=== PATIENT | female | born 1950 | race Caucasian/White ===

== ENCOUNTER 2023-08-21 09:17 | Outpatient (REF) | payer MEDICARE, SELFPAY | END 2023-08-21 09:18 | disposition home or self-care (01) | LOC: HO.SH 09:17 | PROVIDERS: Visit Provider Internal Medicine | DX: H91.90 Unspecified hearing loss, unspecified ear (principal) | CPT/HCPCS: 92557 ==

== ENCOUNTER 2025-02-07 08:49 | Outpatient (REF) | payer MEDICARE, SELFPAY ==
--- OUTSIDE RECORDS SUMMARY | 2025-02-07 09:17 | XMS_ITS | Clinical Summary ---
Author Organization [facility] [employer] Address [address] [place] [address] Phone Care Team Providers Care Asthma Educator Name Role Phone Julita Chamberlain MD Primary Care Prov ider Allergies Active Allergy Reactions Criticality Noted Date Comments Adhesive Tape-Silicones 07/03/2023 Medications calcium carbonate/vitam in D3 (CALCIUM CARBONATE-VITAM IN D PO) Take 1 Tablet by mouth 2 times daily. Active ketoconazole (NIZORAL) 2 % cream Apply topically 2 times daily. PRN Active latanoprost (XALATAN) 0.005 % ophthalmic solution Administer 1 drop into both eyes at bedtime. Active timolol (TIMOPTIC) 0.5 % ophthalmic solution Administer 1 drop into both eyes 2 (two) times a day. 4 Active lisinopriL (PRINIVIL,ZESTR IL) 5 mg tablet TAKE 1 TABLET DAILY 90 tablet 1 5 Active metoprolol succinate (TOPROL-XL) 25 mg 24 hr tablet TAKE 1 TABLET DAILY 90 tablet 1 5 Active simvastatin (ZOCOR) 40 mg tablet TAKE 1 TABLET AT BEDTIME 90 tablet 1 5 Active Active Problems Problem Noted Date Diagnosed Date SVT (supraventricular tachycardia) 06/10/2023 Overview (12/13/2024): Last Assessment & Plan: Patient with documented SVT. This is the first episode in 7 years triggers uncertain. EKGs from [place] definitely show SVT narrow complex. Patient is on beta-angelica and tolerating it now. I explained to her the mechanism of SVT. The symptoms of SVT. We discussed the mechanical procedures that she can take to try to break the episode. I told her to call 911 and if Valsalva does not stop the episode so that she can be treated with adenosine again. I explained her that if the frequency of these episodes increase we could consider an ablation but with a frequency of once every 7 years I would not proceed to an ablation at this point. There is no evidence of preexcitation on her EKG. Recommend continuation of beta-angelica Assessment & Plan (02/05/2025 7:44 PM EDT): Orders: Transthoracic echocardiogram (TTE) complete with PRN contrast, bubble, strain, and 3D order panel; Future Assessment & Plan (12/13/2024 12:43 PM EST): Patient with recurrent probable SVT. Most stopped with adenosie in the past. Frequency is increased a little bit I think she does have a conversation with the EP service concerning the possibility of ablation. She does not seem to be too anxious to have that done but the frequency of the episodes seem to be increasing in she may start to limit her lifestyle based on the fear of developing arrhythmias. So ask her to be seen by the EP service in the meantime she will continue on Orders: Ambulatory referral to Cardiac Electrophysiology; Future Assessment & Plan (12/12/2024 1:01 PM EST): New recent episode of SVT. She was seen in ER, however at the time of evaluation he was already resolved. She will see cardiology tomorrow. Continue metoprolol as prescribed. Hyperlipidemia 06/15/2022 Assessment & Plan (12/12/2024 1:01 PM EST): Currently on simvastatin 40 mg a day. Last LDL was 96. We we will continue same dose of the medication. Will recheck a lipid profile and a CMP before her next visit. Orders: Comprehensive metabolic panel; Future Lipid panel with reflex to direct LDL; Future Osteopenia 04/23/2011 Encounters Date Type Department Care Team Description 02/01/2025 1:00 PM EDT Consult [facility] Cardiology [facility] [address] [place] [id number] Marc Hidalgo MD PSVT (paroxysmal supraventricular tachycardia) ([facility]) (Primary Dx); SVT (supraventricular tachycardia) ([facility]/HCC) 12/13/2024 8:50 AM EST Office Visit [facility] Cardiology [facility] [address] [place] [id number] Isidoro Garcia MD SVT (supraventricular tachycardia) ([facility]) (Primary Dx) 12/12/2024 11:30 AM EST Office Visit Adult Medicine [address] [phone] Julita Chamberlain MD Encounter for general adult medical examination without abnormal findings (Primary Dx); Primary hypertension; Mixed hyperlipidemia; SVT (supraventricular tachycardia) ([facility]); Screen for colon cancer; Advance care planning from Last 3 Months Immunizations Name Administration Dates Next Due Influenza Quadravalent, MDCK , 0.5ml, with preservative (Flucelvax) 6mo and older 09/18/2017 Influenza trivalent, 0.5mL ( Fluad) 65yo and older 07/22/2023,08/22/2022,06/24/2021,08/03,08/16/2019,09/01/2018 Influenza trivalent, 0.5mL, preservative free (Fluarix; FluLaval; Fluzone) ages 6mo and older (Afluria) 3 years and older 09/01/2016,09/26/2014,08/10/2013,10/14,10/28/2011,08/22/2010,08/15/2009 Pfizer SARS-CoV-2 COVID-19, mRNA, LNP-S, preservative free 08/23/2021 Pneumococcal conjugate 13 va lent (Prevnar 13, PCV13) 2mo and older 09/18/2017 Pneumococcal polysaccharide 23 valent (Pneumovax 23) 2yo and older 12/01/2018 Td Tetanus diptheria (Tdvax) 7yo and older 10/08/2022,09/03/2004 Td, Unspecified 09/03/2004 Tdap Tetanus diptheria acell ular pertussis (Boostrix; Adacel) 7yo and older 06/14/2012 Zoster Live 10/14/2012 Zoster recombinant (Shingrix ) 19yo and older 11/17/2020 Surgical History Surgery Date Site/Laterality Comments OTHER SURGICAL HISTORY 2005 PROCEDURE: COLONOSCOPY, REMOVE LESION; COMMENT: POLYP, DIVERTICULUM - TUb ademoma TONSILLECTOMY child PROCEDURE: HISTORICAL TONSILLECTOMY SKIN BIOPSY 02/17/05 PROCEDURE: BIOPSY OF SKIN LESION; COMMENT: MELANOCYTIC NEVUS, INTRADERMAL CONGENITAL TYPE - CHEEK COLONOSCOPY 01/2006 PROCEDURE: HISTORICAL COLONOSCOPY; COMMENT: adenoma and diverticulosis COLONOSCOPY 01/26/09 PROCEDURE: MA COLONOSCOPY STOMA DX INCLUDING COLLJ SPEC SPX; COMMENT: diverticulosis; repeat in five years COLONOSCOPY 03/21/14 PROCEDURE: MA COLONOSCOPY STOMA DX INCLUDING COLLJ SPEC SPX; COMMENT: tics; repeat in 5 yrs OTHER SURGICAL HISTORY PROCEDURE: HISTORICAL CA BASAL CELL; COMMENT: BCC 09/24 nose (nodular) Medical History Medical History Date Comments Diverticulosis of colon (wit hout mention of hemorrhage) DX:Diverticulosis of colon ( without mention of hemorrhage); COMMENT: colonoscopy 2004 Pure hypercholesterolemia DX:Pur e hypercholesterolemia Overweight(278.02) 11/19/2006 DX:Overweight (278.02) Personal history of colonic polyps 01/07/06 DX:Personal history of colonic polyps; COMMENT: repeat 01/15 Essential hypertension, benign 10/31/08 D X:Essential hypertension, benign Glaucoma DX:Glaucoma; COM MENT: Dr Hearn Arthritis pain, hand 02/27/2015 DX:Arthriti s pain, hand History of basal cell carcinoma 10/15/2016 DX:History of basal cell carcinoma; COMMENT: BCC 09/24 nose (nodular) Family History Medical History Relation Name Comments Alcohol abuse Brother 1 Heart attack Brother 2 Coronary artery disease Maternal Grandmother Hypertension Mother Colon cancer Mother's side uncle, d Coronary artery disease Paternal Grandfather Breast cancer Neg Hx Ovarian cancer Neg Hx Uterine cancer Neg Hx Relation Name Status Comments Brother 1 ETOH, CIRRHOSIS Brother 2 Alive Healthy Daughter Alive Healthy Father CHOL, PROGRESSI VE APHASIA DISORDER, GLAUCOMA Maternal Grandfather UK Maternal Grandmother CO Mother (Age 76) A-FIB, HTN , CVA Mother's side Paternal Grandfather CO Paternal Grandmother CA abdo min Sister Alive Healthy Son Alive Helathy x glauc katelyn Social History Tobacco Use Types Packs/Day Years Used Date Smoking Tobacco: Former Cigarettes Q uit: 11/09/1971 Smokeless Tobacco: Never Tobacco Cessation:Counseling Given: Not Answered Alcohol Use Standard Drinks/Week Comments Not Currently 0 (1 standard drink = 0.6 oz pur e alcohol) occasional Comments No Sex and Gender Information Value Date Recorded Sex Assigned at Not on file Legal Sex Female 1:16 PM EST Gender Identity Not on file Sexual Orientation Not on file Obstetrics History Last Filed Vital Signs Vital Sign Reading Time Taken Comments Blood Pressure 142/82 02/01/2025 1:20 PM EDT Pulse 65 02/01/2025 1:20 PM EDT Temperature 36.7 ??C (98 ??F) 12/12/2024 11:36 AM EST Respiratory Rate 13 12/12/2024 11:36 AM EST Oxygen Saturation 96% 12/13/2024 8:46 AM EST Inhaled Oxygen Concentration - - Weight 51.7 kg (114 lb) 02/01/2025 1:20 PM EDT Height 152.4 cm (5') 12/13/2024 8:46 AM EST Body Mass Index 22.26 12/13/2024 8:46 AM EST Plan of Treatment Upcoming Encounters Date Type Department Care Team (Late st Contact Info) Description 04/18/2025 12:30 PM EDT Ancillary Procedure [facility] [address] [place] [address] [phone] 04/21/2025 8:50 AM EDT Appointment Radiology Department - [address] [phone] 06/13/2025 1:00 PM EDT Office Visit Adult Medicine [address] [phone] Julita Chamberlain MD [address] [place] [address] Health Maintenance Due Date Last Done Comments Zoster Vaccines (2 of 2) 01/12/2021 11/17/2020, 04/2012 Social Influencers of Health Screening 10/18/2022 Colorectal Cancer Screening: Colonoscopy 08/02/2024 08/02/2019, 03/21/2014 Hypertension/CHF/CAD Annual BMP Blood Test 04/14/2025 04/14/2024, 04/14/2024 Depression Screening 12/12/2025 12/12/2024, 12/09/19 24 Falls Risk Assessment 12/12/2025 12/12/2024, 024 Medicare Annual Wellness Visit 12/12/2025 12/12/2024 Breast Cancer Screening 04/14/2026 04/14/20, 04/14/2024, 03/24/2023, Additional history exists Cholesterol Screening (Lipid Panel) 04/14/2029 04/14/2024, 04/14/2024 DTaP,Tdap,and Td Vaccines (5 - Td or Tdap) 10/08/2032 10/08/2022, 06/14/2012, 09/03/2004, Additional history exists Osteoporosis Screening (Bone Density Screening) 11/05/2032 11/05/2022, 10/19/2017 Hepatitis C Screening Completed 08/10/2013 Pneumococcal Vaccine: 50+ Years Completed 12/01/2018, 09/18/2017 RSV Immunization Patients 60+ Years Old Completed 09/14/2023 COVID-19 Vaccine Completed 08/15/2024, 04/2023, 01/14/2023, Additional history exists Influenza Vaccine Completed 08/15/2024, , 08/22/2022, Additional history exists HIB Vaccines Aged Out No longer eligi ble based on patient's age to complete this topic HPV Vaccines Aged Out No longer eligi ble based on patient's age to complete this topic Hepatitis A Vaccines Aged Out No long er eligible based on patient's age to complete this topic Hepatitis B Vaccines Aged Out No long er eligible based on patient's age to complete this topic IPV Vaccines Aged Out No longer eligi ble based on patient's age to complete this topic MMR Vaccines Aged Out No longer eligi ble based on patient's age to complete this topic Meningococcal ACWY Vaccine Aged Out N o longer eligible based on patient's age to complete this topic Meningococcal B Vacine Aged Out No lo nger eligible based on patient's age to complete this topic RSV Immunization Patients Under 20 months Aged Out No longer eligible based on patient's age to complete this topic Varicella Vaccines Aged Out No longer eligible based on patient's age to complete this topic Procedures Procedure Name Priority Date/Time Associated Diagnosis Comments ECG 12-LEAD Routine 02/01/2025 1:25 PM EDT PSVT (paroxysmal supraventricular tachycardia) (CMS/HCC) SCREENING MAMMOGRAPHY BI 2-VIEW BREAST INC CAD Routine 04/14/2024 9:16 AM EDT Encounter for screening mammogram for malignant neoplasm of breast ANNUAL BMP BLOOD TEST Routine 04/14/2024 LIPID PANEL Routine 04/14/2024 DEPRESSION SCREENING Routine 12/09/2023 FALLS RISK ASSESSMENT Routine 12/09/2023 DXA BONE DENSITY STUDY 1+ SITS AXIAL SKEL Routine 11/05/2022 10:31 AM EST Asymptomatic menopausal state COLONOSCOPY Routine 08/02/2019 HEPATITIS C SCREENING Routine 08/10/2013 from Last 3 Months or Most Recently Relevant to Health Maintenance Results * ECG 12 lead (02/01/2025 1:25 PM EDT) Ventricular Rate ECG 65 BPM GEMUSE Atrial Rate 65 BPM GEMUSE P-R Interval 164 ms GEMUSE QRS Duration 88 ms GEMUSE Q-T Interval 420 ms GEMUSE QTc 436 ms GEMUSE P Wave [place] 68 degrees GEMUSE R [place] 8 degrees GEMUSE T [place] 53 degrees GEMUSE ECG Interpretation Normal sinus rhythm No previous ECGs available Confirmed by FAUSTO HIDALGO ([id number]) on 02/02/2025 8:35:01 PM GEMUSE 02/01/2025 1:25 PM EDT 02/02/2025 8:35 PM EDT us Marc Hidalgo MD ECG ORDERABLES Final Resu lt GEMUSE * SCREENING MAMMOGRAPHY BI 2-VIEW BREAST INC CAD (04/14/2024 9:16 AM EDT) Anatomical Region Laterality Modality Radiographic Laxmi ging 03/24/2023 8:02 AM EDT Narrative 04/14/2024 10:48 AM EDT This is a summary report. The complete report is available in the patient's medical record. If you cannot access the medical record, please contact the sending organization for a detailed fax or copy. Full field digital screening tomosynthesis mammography, reviewed with CAD and compared to previous mammograms dating back to 01/09/2020 with most recent of 03/24/2023. The breasts are composed of fatty and fibroglandular tissue. ??No suspicious mass, architectural distortion or suspicious calcifications are identified. IMPRESSION: : No mammographic evidence of malignancy. BIRADS 1-Negative; N. 5 year breast cancer risk assessment 1.9 % Lifetime breast cancer risk assessment 5.4 % Breast cancer risk category Low (<15%) Procedure Note Prema Richard MD - 08/24/2024 This is a summary report. The complete report is available in thepatient's medical record. If you cannot access the medical record, pleasecontact the sending organization for a detailed fax or copy. Full field digital screening tomosynthesis mammography, reviewed with CADand compared to previous mammograms dating back to 01/09/2020 with mostrecent of 03/24/2023. The breasts are composed of fatty and fibroglandulartissue. No suspicious mass, architectural distortion or suspiciouscalcifications are identified. IMPRESSION: : No mammographic evidence of malignancy. BIRADS 1-Negative; N. 5 year breast cancer risk assessment 1.9 % Lifetime breast cancer risk assessment 5.4 % Breast cancer risk category Low (<15%) Result [facility] Julita Chamberlain MD IMG XR PROCEDURES Final Result * Annual BMP Blood Test (04/14/2024) [facility] Annual BMP Blood Test abstracted Result Critical access hospital HEALTH MAINTENANCE Final Result * Lipid panel (04/14/2024) [facility] LDL/HDL Ratio 3 0 - 4 Triglycerides 99 0 - 150 mg/dL Cholesterol 188 0 - 200 mg/dL HDL 73 >=40 mg/dL LDL Cholesterol 96 0 - 100 mg/dL Blood Venous blood specimen / Unknown Result Count includes the [facility] LAB BLOOD ORDERABLES Oralia l Result * Falls Risk Assessment (12/09/2023) [facility] Falls Risk Assessment abstracted Result Count includes the [facility] HEALTH MAINTENANCE Final Result * Depression Screening (12/09/2023) [facility] Depression Screening abstracted Result Critical access hospital [facility] Final Result * DXA BONE DENSITY STUDY 1+ SITS AXIAL SKEL (11/05/2022 10:31 AM EST) Anatomical Region Laterality Modality Bone Densitometr y 10/08/2022 10:1 3 AM EST Narrative 11/05/2022 1:25 PM EST BONE DENSITY (DEXA) ? Lumbar Spine T-score is -2.4. ?? (SD relative to 20-29 y/o adult) Z-score is -0.3. ??(SD relative to age matched peers) This is considered osteopenia by WHO criteria. Left Hip T-score is -2.4. Z-score is -0.6. This is considered osteopenia by WHO criteria. Lateral view of the spine demonstrates vertebral heights to be maintained. ??There is grade 1 spondylolisthesis at L4-5. IMPRESSION: This patient is considered to have osteopenia by WHO criteria. This patient has a 14% risk of major osteoporotic fracture and a 3.3% risk of hip fracture over the next 10 years. (World Health Organization Fracture Risk Assessment) [facility] Department of Internal Medicine recommends using National Osteoporosis Foundation (NOF) guidelines in treatment decisions related to osteoporosis. NOF guidelines suggest considering treatment for postmenopausal women and men aged 50 or older presenting with the following: History of hip or vertebral fracture. T-score = -2.5 (DXA) at the femoral neck, total hip, or spine, after appropriate evaluation to exclude secondary causes. Low bone mass (T-score between -1.0 and -2.5 at the femoral neck or spine) AND a 10-year probability of a hip fracture = 3% OR a 10-year probability of a major osteoporosis-related fracture = 20% based on the [place]-adapted WHO algorithm Please note that all treatment decisions require clinical judgment and consideration of individual patient factors, including patient preferences, co-morbidities, previous drug use, risk factors not captured in the FRAX model (e.g., frailty, falls, vitamin D deficiency, increased bone turnover, interval significant decline in bone density) and possible under- or over-estimation of fracture risk by FRAX. Optional alternative screening schedule based on john Martinez., [facility] November 27, 2011 for patients with osteopenia (based on hip BMD T-score) is as follows: * ??advanced osteopenia (T scores -2.00 to -2.49), BMD testing every year * ??moderate osteopenia (T scores -1.50 to -1.99), BMD testing every 5 years mild osteopenia or normal BMD (T scores -1.50 and higher), BMD testing every 15 years Procedure Note Prema Richard MD - 12/15/2023 BONE DENSITY (DEXA) Lumbar Spine T-score is -2.4. (SD relative to 20-29 y/o adult) Z-score is -0.3. (SD relative to age matched peers) This is considered osteopenia by WHO criteria. Left Hip T-score is -2.4. Z-score is -0.6. This is considered osteopenia by WHO criteria. Lateral view of the spine demonstrates vertebral heights to be maintained.There is grade 1 spondylolisthesis at L4-5. IMPRESSION: This patient is considered to have osteopenia by WHO criteria. Thispatient has a 14% risk of major osteoporotic fracture and a 3.3% risk of hip fracture over the next10 years. (World Health Organization Fracture Risk Assessment) [facility] Department of Internal Medicine recommendsusing National Osteoporosis Foundation (NOF) guidelines in treatment decisions related toosteoporosis. NOF guidelines suggest considering treatment for postmenopausal women and menaged 50 or older presenting with the following: History of hip or vertebral fracture. T-score = -2.5 (DXA) at the femoral neck, total hip, or spine, afterappropriate evaluation to exclude secondary causes. Low bone mass (T-score between -1.0 and -2.5 at the femoral neck or spine)AND a 10-year probability of a hip fracture = 3% OR a 10-year probability of a majorosteoporosis-related fracture = 20% based on the [place]-adapted WHO algorithm Please note that all treatment decisions require clinical judgment andconsideration of individual patient factors, including patient preferences, co- morbidities,previous drug use, risk factors not captured in the FRAX model (e.g., frailty, falls, vitaminD deficiency, increased bone turnover, interval significant decline in bone density) andpossible under- or over-estimation of fracture risk by FRAX. Optional alternative screening schedule based on ravin Martinez al., NEJMJanuary 2011 for patients with osteopenia (based on hip BMD T-score) is as follows: * advanced osteopenia (T scores -2.00 to -2.49), BMD testing every year * moderate osteopenia (T scores -1.50 to -1.99), BMD testing every 5years mild osteopenia or normal BMD (T scores -1.50 and higher), BMD testingevery 15 years [facility]aina [facility] DXA PROCEDURES Final Result * Colonoscopy (08/02/2019) Colonoscopy no interpretation , abstracted Anatomical Region Laterality Modality Other Historical Provider HEALTH MAINTENANCE Final Result * Hepatitis C Screening (08/10/2013) Hepatitis C Screening abstracted us Historical Provider HEALTH MAINTENANCE Final Result from Last 3 Months or Most Recently Relevant to Health Maintenance Insurance MEDICARE [facility] Care Teams Asthma Educator Relationship Specialty Start Date End Date Julita Chamberlain MD [address] [place] [id number] PCP - General Internal Medicine 12/12/24
== END 2025-02-07 08:50 | disposition home or self-care (01) ==
LOC: HO.SH 08:49
PROVIDERS: Visit Provider Internal Medicine
DX: Z01.118 Encounter for examination of ears and hearing with other abnormal findings (principal); H90.3 Sensorineural hearing loss, bilateral
CPT/HCPCS: 92552; 92556

== ENCOUNTER 2025-02-07 09:36 | Outpatient (REF) | payer SELFPAY ==
--- OUTSIDE RECORDS SUMMARY | 2025-02-07 10:54 | XMS_ITS | Clinical Summary ---
Author Organization [facility] Address [address] [place] [address] Phone Care Team Providers Care Cordwood Cutter Name Role Phone Julita Chamberlain MD Primary [...] in 7 years triggers uncertain. EKGs from [place] definitely show SVT narrow complex. Patient is [...] Team Description 02/01/2025 1:00 PM EDT Consult [facility] [address] [place] [id number] Marc Hidalgo MD PSVT (paroxysmal supraventricular tachycardia) ([facility]) (Primary Dx); SVT (supraventricular tachycardia) ([facility]) 12/13/2024 8:50 AM EST Office Visit [facility] [address] [place] [id number] Isidoro Garcia MD SVT (supraventricular tachycardia) ([facility]) (Primary Dx) 12/12/2024 11:30 AM EST Office Visit Adult Medicine [address] [phone] Julita Chamberlain MD Encounter for general adult medical examination without abnormal findings (Primary Dx); Primary hypertension; Mixed hyperlipidemia; SVT (supraventricular tachycardia) ([facility]); Screen for colon cancer; Advance care planning [...] COMMENT: adenoma and diverticulosis COLONOSCOPY 01/26/09 PROCEDURE: [place] COLONOSCOPY STOMA DX INCLUDING COLLJ SPEC SPX; COMMENT: diverticulosis; repeat in five years COLONOSCOPY 03/21/14 PROCEDURE: [place] COLONOSCOPY STOMA DX INCLUDING COLLJ SPEC SPX; [...] DISORDER, GLAUCOMA Maternal Grandfather [place] Maternal Grandmother [place] Mother (Age 76) A-FIB, HTN , CVA Mother's side Paternal Grandfather [place] Paternal Grandmother [place] abdo min Sister Alive [...] Description 04/18/2025 12:30 PM EDT Ancillary Procedure [facility] [address] [place] [address] [phone] 04/21/2025 8:50 AM EDT Appointment Radiology Department - [address] [phone] 06/13/2025 1:00 PM EDT Office Visit Adult Medicine [address] [phone] Julita Chamberlain MD [address] [place] [address] Health Maintenance Due Date Last Done Comments [...] GEMUSE QTc 436 ms GEMUSE P Wave [place] 68 degrees GEMUSE R [place] 8 degrees GEMUSE T [place] 53 degrees GEMUSE ECG Interpretation Normal sinus [...] Breast cancer risk category Low (<15%) Result [facility] Julita Chamberlain MD IMG XR PROCEDURES Final Result * Annual BMP Blood Test (04/14/2024) [facility] Annual BMP Blood Test abstracted Result [facility] HEALTH MAINTENANCE Final Result * Lipid panel (04/14/2024) [facility] LDL/HDL Ratio 3 0 - 4 Triglycerides 99 0 - 150 mg/dL Cholesterol 188 0 - 200 mg/dL HDL 73 >=40 mg/dL LDL Cholesterol 96 0 - 100 mg/dL Blood Venous blood specimen / Unknown Result [facility] LAB BLOOD ORDERABLES Oralia l Result * Falls Risk Assessment (12/09/2023) [facility] Falls Risk Assessment abstracted Result [facility] HEALTH MAINTENANCE Final Result * Depression Screening (12/09/2023) [facility] Depression Screening abstracted Result [facility] HEALTH [facility] Final Result * DXA BONE DENSITY STUDY [...] (World Health Organization Fracture Risk Assessment) [facility] Department of Internal Medicine recommends using National [...] alternative screening schedule based on john Martinez., [facility] November 27, 2011 for patients with osteopenia [...] (World Health Organization Fracture Risk Assessment) [facility] Department of Internal Medicine recommendsusing National Osteoporosis [...] higher), BMD testingevery 15 years Alaina [facility] DXA PROCEDURES Final Result * Colonoscopy (08/02/2019) Colonoscopy no interpretation , abstracted Anatomical Region Laterality Modality Other Historical Provider HEALTH MAINTENANCE Final Result * Hepatitis C Screening (08/10/2013) Hepatitis C Screening abstracted us Historical Provider HEALTH MAINTENANCE Final Result from Last 3 Months or Most Recently Relevant to Health Maintenance Insurance [facility] Care Teams Cordwood Cutter Relationship Specialty Start Date End Date Julita Chamberlain MD [address] [place] [phone] PCP - General Internal Medicine 12/12/24
--- NOTE | 2025-02-08 15:14 | MHC.AU.HA3 ---
Hearing Instrument Follow-Up- Binaural Date of Visit: 02/07/25 Right Ear: Make, Model, Color, Serial Number: ReScaleb Pham 5 [id number] CELESTINO SN: [id number] Playground Monitor Repair Warranty: Playground Monitor Loss and Damage Warranty: [facility] Service Plan: N/A Battery Size: 312 Abalone Processor/Slim Tube: 2 LP Earmold/Dome/CShell/SlimTip:Large closed dome (no retention tail) Type of Wax Guard: ReSound Dispensed By: [facility] in [facility] Left Ear: Make, Model, Color, Serial Number: Rachael Pham 5 [id number] CELESTINO SN: [id number] Playground Monitor Repair Warranty: Playground Monitor Loss and Damage Warranty: [facility] Service Plan: N/A Battery Size: 312 Abalone Processor/Slim Tube: 2 LP Earmold/Dome/CShell/SlimTip: Large closed dome (no retention tail) Type of Wax Guard: ReSound Dispensed By: [facility] in [facility] Follow-Up Summary: Updated hearing test - see audio. Following last hearing test in August 2023, Tammy purchased HAs in [facility], where daughter lived at that time. Had follow up services there, some remote, until daughter moved back. Now hoping HAs can be serviced here, as needed. Cleaned both HAs. Replaced domes and wax guards. Vacuumed microphones. Ran through dehumidifier. Listening check demonstrated HAs amplifying clearly. Able to connect to programming software - read out settings. No programming adjustments as hearing is stable and Tammy is overall satisfied with sound quality. *After appointment, called [facility] to obtain warranty information. Per customer orders clerk, right MATTHEWS has an inactive serial number. MATTHEWS was reportedly a Return for Credit device. If sent to [facility], it would be confiscated. The left MATTHEWS could not be found in system, likely because it was purchased abroad; the chip needs to be exchanged. In order to do so, MATTHEWS would need to be sent to [facility] with proof of purchase from original provider which includes name, date of purchase, warranty information, and make/model of MATTHEWS. *Update 02/08/2025: Called Tammy with above information from [facility]. She will discuss with daughter who has contact information for paper pattern folder in [facility]. They will obtain necessary paperwork and try to get more information about right MATTHEWS. Recommendations: Hearing instrument follow-up or maintenance as needed. Please contact our clinic with any questions or concerns. Diagnosis Code(s): Primary Diagnosis: H90.3 Bilateral Sensorineural Hearing Loss Signature: Provider: Fabiano Granados, CCC-A
== END 2025-02-07 09:37 | disposition home or self-care (01) ==
LOC: HO.HAP 09:36
PROVIDERS: Visit Provider Internal Medicine
DX: Z46.1 Encounter for fitting and adjustment of hearing aid (principal); H90.3 Sensorineural hearing loss, bilateral
CPT/HCPCS: 92593